=== PATIENT | male | born 1980 | race African-American/Black ===

== ENCOUNTER 2017-06-29 01:01 | Emergency (ER) | payer MEDICAID ==
[~2017-06-29] VITALS: Ht 188 cm; Wt 81.6 kg
[2017-06-29 01:10] VITALS: BP 123/74
== END 2017-06-29 04:02 | disposition left against medical advice (07) ==
LOC: ER 01:03
DX: M79.604 Pain in right leg (principal); M79.605 Pain in left leg; Z53.21 Procedure and treatment not carried out due to patient leaving prior to being seen by health care provider
CPT/HCPCS: 73590; 73620